=== PATIENT | male | born 1965 | race Caucasian/White ===

== ENCOUNTER 2017-04-04 22:39 | Emergency (ER) | payer SELFPAY ==
[2017-04-04] MEDS: ONDANSETRON HCL/PF 4 MG/ 2ML VIAL IVP ONE (23:30)
[2017-04-04] MEDS: 0.9 % SODIUM CHLORIDE 1,000 ML IV ONE (23:30)
[2017-04-04 23:47] LABS: BASOPHILS % 0.5 (0.0-1.5); EOSINOPHILS % 1.9 % (0.0-6.8); MEAN CORPUSCULAR VOLUME 94.1 fl (80.0-100.0); MONOCYTES % 5.6 % (0.0-11.0)
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
[2017-04-04 23:59] LABS: eGFR (African) > 60; eGFR (Non-African) > 60
--- NOTE | 2017-04-05 01:18 | Diagnostic Imaging Report ---
ROCKY DAVIDSON (REJI) - ER [facility] [address] [facility].[address] [address] Report Submission Date: Apr 05, 2017 1:15:45 AM CDT Patient Study Name: HILDA ELLINGTON Date: Apr 05, 2017 12:48:45 AM CDT Modality Type: CR Gender: M Description: ABDOMEN : 65 Institution: [facility] Physician: ROCKY DAVIDSON) - ER Abdomen - one-view Clinical history: Abdominal pain. Vomiting and diarrhea. Findings: Examination of the abdomen single AP view demonstrates postoperative changes with surgical clips in the right upper quadrant from prior cholecystectomy. Gas and stool are present in the colon. There are mild degenerative changes in the lumbar vertebrae. There is no evidence of obstruction. Visualized lung bases are clear. Impression: 1. Postoperative changes. 2. Gas and stool in the colon. 3. Mild lumbar spondylosis. Electronically signed on Apr 05, 2017 1:15:45 AM CDT by: Fco ROTH
--- NOTE | 2017-04-05 01:19 | Diagnostic Imaging Report ---
ROCKY DAVIDSON (REJI) - ER [facility] [address] [facility].[address] [address] Report Submission Date: Apr 05, 2017 12:22:04 AM CDT Patient Study Name: HILDA ELLINGTON Date: Apr 05, 2017 12:10:20 AM CDT Modality Type: CR Gender: M Description: CHEST : 65 Institution: [facility] Physician: ROCKY DAVIDSON) - ER Chest - one-view Clinical history: Dyspnea on exertion. Findings: Examination of the chest in single portable AP view 04/05/2017 0010 hours with no prior films for comparison demonstrates lungs to be clear. Cardiovascular and mediastinal silhouettes are within normal limits. The vascular structures in the lung bases appear prominent because of overlying soft tissues. Impression: 1. No active disease. Electronically signed on Apr 05, 2017 12:22:04 AM CDT by: Fco ROTH
[2017-04-05 02:25] VITALS: BP 122/45
== END 2017-04-05 02:15 | disposition short-term general hospital (02) ==
LOC: ED 22:39
DX: R09.02 Hypoxemia (principal); B19.20 Unspecified viral hepatitis C without hepatic coma; R11.14 Bilious vomiting; A09 Infectious gastroenteritis and colitis, unspecified
CPT/HCPCS: 71010; 74020; 80053; 83880; 85025; 87040; 93005; J2405; J7030; 82140; 96361; 96374; 99284; S1016